=== PATIENT | female | born 1955 | race African-American/Black ===

== ENCOUNTER 2017-08-29 11:36 | Outpatient (CLI) | payer OTHER | END 2017-08-29 11:37 | disposition home or self-care (01) | LOC: BICRAD 11:36 | PROVIDERS: ATTEND Internal Medicine | DX: M25.561 Pain in right knee (principal); M25.512 Pain in left shoulder; M17.11 Unilateral primary osteoarthritis, right knee; M19.012 Primary osteoarthritis, left shoulder ==

== ENCOUNTER 2020-01-03 06:19 | Inpatient (IN) | payer MEDICARE, MEDICAID ==
[2020-01-03] MEDS ORDERED: Morphine 4 MG/ML VIAL ONE (07:14)
[2020-01-03] MEDS ORDERED: Acetaminophen 500 MG TAB ONE (07:15)
[2020-01-03] MEDS ORDERED: Ondansetron PF 4 MG/2 ML Vial ONE (07:15)
[2020-01-03 07:42] LABS: Hemoglobin 12.5 g/dL (12.0-16.0); Mean Corpuscular HGB CONC 34.6 g/dL (32.0-36.0); Mean Corpuscular Hemoglobin 29.3 pg (27.0-31.0); Mean Corpuscular Volume 84.7 fL (78.0-98.0); Mean Platelet Volume 7.7 fL (7.4-10.4); Platelet Count 295 thou/uL (130-400); Red Blood Cell (RBC) Count 4.28 mill/uL (4.20-5.40); White Blood Cell (WBC) Count 11.8 thou/uL (4.8-10.8)
[2020-01-03 07:50] LABS: INR-International Normal Ratio 0.9; PTT 27.2 SEC (22.9-36.1)
[2020-01-03 07:52] LABS: ALT (SGPT) 122 U/L (8-55); AST (SGOT) 148 U/L (5-34); Albumin 4.2 g/dL (3.4-4.8); Alkaline Phosphatase 227 U/L (40-110); Anion Gap 16 mmol/L (10-20); BUN (Urea Nitrogen) 8 mg/dL (9.8-20.1); Bilirubin, Total 2.7 mg/dL (0.2-1.2); CK (CPK) 53 U/L (29-168); Calc. Creatinine Clearance 0 mL/min (70-130); Calcium 9.8 mg/dL (7.8-10.44); Carbon Dioxide 23 mmol/L (23-31); Chloride 103 mmol/L (98-107); Estimated GFR-MDRD 87; Globulin 4.2 g/dL (2.4-3.5); Glucose 148 mg/dL (80-115); Potassium 3.5 mmol/L (3.5-5.1); Protein, Total 8.4 g/dL (6.0-8.3); Sodium 138 mmol/L (136-145)
--- NOTE | 2020-01-03 08:01 | ULT ---
Sonogram right upper quadrant HISTORY: Right upper quadrant pain. FINDINGS: Gallbladder is distended up to 10.1 cm. No stones visible. No gallbladder wall thickening. A very small amount of fluid lies immediately anterior to the gallbladder wall. Patient was reportedly not tender over the gallbladder fossa at the time of the exam. Common duct is dilated at 1 .7 cm without internal echogenicity evident. Liver has normal appearance. No free fluid. IMPRESSION : Distention of the common bile duct and gallbladder may reflect central biliary obstruction. Cause is not evident. Minimal pericholecystic fluid. For further evaluation, CT abdomen would likely be most appropriate to evaluate for potential cause o f central biliary obstruction.
[2020-01-03 08:04] LABS: Lipase 4816 U/L (8-78)
[2020-01-03 08:08] LABS: Band 29 % (5-11); Lymphocytes 2 % (21-51); MDiff Complete? YES; Monocytes 3 % (0-10); Neutrophil 66 % (42-75); RBC Morphology Normal
[2020-01-03 08:46] LABS: Bilirubin Negative (Negative); Blood, Urine Negative (Negative); Glucose, Urine (Dipstick) Negative (Negative); Leukocyte Negative (Negative); Nitrite Negative (Negative); Protein, Urine (Dipstick) Negative (Neg-Trace)
[2020-01-03 08:48] LABS: Clarity Clear (Clear)
[2020-01-03] MEDS ORDERED: Ketorolac Tromethamine 30 MG/ML VIAL ONE (08:50)
[2020-01-03] MEDS ORDERED: Vancomycin 1 GM/200 ML BAG ONE (08:50)
[2020-01-03] MEDS ORDERED: Piperacillin/Tazobactam 4.5 GM VIAL ONE (08:50)
[2020-01-03 10:32] LABS: Lactic Acid 1.7 mmol/L (0.5-2.2)
--- NOTE | 2020-01-03 10:51 | CT ---
CT ABDOMEN AND PELVIS WITH IV CONTRAST: Date: 01/03/2020 INDICATION: Right upper quadrant pain. Pancreatitis. Fever. Correlation made to gallbladder ultrasound performed today, which showed biliary duct dilatation and pericholecystic edema. FINDINGS: Lung bases clear of infiltrate with mild bibasilar stranding and atelectasis. There is intra and extrahepatic biliary duct dilatation consistent with ultrasound findings. The gall bladder is distended and there is pericholecystic edema. There is a 1.5 cm cyst in peripheral right lobe of liver and there is a small 0.7 cm cyst in the mid left lobe. Spleen unremarkable. Pancreas unremarkable with no evidence of peripancreatic edema or inflammation by CT. Common bile frances t is dilated to the pancreatic head and obstructive process near the ampulla cannot be excluded. A st one is not identified by CT. Cholesterol stones, however, may not be apparent on CT and recommend GI consultation and consider ERCP. Adrenal glands are normal. Kidneys unremarkable. Small 1.5 cm cyst superior right renal cortex. Small bowel loops normal caliber. Appendix normal. Colon unremarkable. Diverticulosis of the left col on and sigmoid. Aorta normal caliber with atherosclerotic calcification. Urinary bladder distended and unremarkable. There is evidence of hysterectomy. Osseous structures unremarkable. IMPRESSION: 1. Gallbladder is distended with pericholecystic edema. There is intra and extrahepatic biliary duct dilatation as described above. Common bile duct is dilated to the ampulla. Recommend GI consultation and consider ERCP. POS: AGW
[2020-01-03] MEDS ORDERED: Ondansetron PF 4 MG/2 ML Vial IVP PRN (11:47)
[2020-01-03] MEDS ORDERED: Morphine 2 MG/ML SYRINGE SLOW IVP PRN (11:49)
--- NOTE | 2020-01-03 12:40 | HP ---
CHIEF COMPLAINT: Epigastric pain. HISTORY OF PRESENT ILLNESS: The patient is a pleasant 64-year-old female with no significant past medical history, who presented to the hospital with complaints of epigastric and right upper quadrant abdominal pain associated with nausea and vomiting that has been progressively worsening over the past 3 days. In the ER , the patient's laboratory studies showed elevated bilirubin of 2.7 and elevated lipase of greater than 4000. Abdominal ultrasound was performed showing distention of the common bile duct and gallbladder, which may reflect central biliary obstruction. The cause was not evident on the ultrasound. Subsequent CT scan of the abdomen and pelvis was performed showing distended gallbladder with pericholecystic edema with intra and extrahepatic biliary dilatation and common bile duct dilated to the ampulla. REVIEW OF SYSTEMS: Negative, except as noted in HPI. PAST MEDICAL HISTORY: No significant past medical history. PAST SURGICAL HISTORY: Tubal ligations. SOCIAL HISTORY: The patient denies alcohol or illicit drug use. ALLERGIES: NO KNOWN ALLERGIES. PHYSICAL EXAMINATION: GENERAL: The patient is alert and oriented. HEENT: Head is normocephalic and atraumatic. Sclerae anicteric. NECK: Supple. CHEST: Clear to auscultation bilaterally. CARDIOVASCULAR: Revealed normal S1 and S2. Regular rate and rhythm. No murmurs, rubs, or gallops. ABDOMEN: Soft, tender in the epigastric area. Nondistended. Bowel sounds are audible. NEUROLOGIC: Nonfocal. ASSESSMENT: 1. Biliary obstruction. 2. Epigastric pain. 3. Pancreatitis likely due to obstruction of pancreatic duct. PLAN: We will admit the patient to the medical floor. Clear liquid diet. Start normal saline at 150 mL/h. GI and surgical team consulted. The likely plan will be for ERCP, followed by cholecystectomy, and PT and OT evaluation if needed postoperatively. Lovenox for DVT prophylaxis, which can be started after 12 hours from the procedures. Slight leukocytosis was present with bandemia, so I will initiate IV ceftriaxone. Job ID: [id number] [facility]
[2020-01-03] MEDS ORDERED: Iopamidol 370 76% 100 ML VIAL ONE (12:42)
--- NOTE | 2020-01-03 12:54 | CON ---
DATE OF CONSULTATION: 01/03/2020 REQUESTING PHYSICIAN: Dr. Pleitez. HISTORY OF PRESENT ILLNESS: This is a 64-year-old woman, who presented to the emergency department today with recurrent epigastric right upper quadrant abdominal pain, which started two days ago after eating hot wings. The pain is described as sharp, occasionally crampy and radiating to her back. Pain is associated with multiple episodes of nausea overnight. The patient denies any fevers or chills. She has experienced similar pain in the past after eating, which resolved spontaneously and not quite as severe as the pain that brought her to the emergency department at this time. At the time of my evaluation, the patient is awake and alert. She reports the pain now down to 5/10 from 10/10 upon presentation. The patient denies any unexplained weight loss. She denies any change in her bowel habits except for abdominal distention and frequent flatulence over the last 2 days. PAST MEDICAL HISTORY: The patient denies any previous medical problems. PAST SURGICAL HISTORY: She has had bilateral tubal ligation in 1972 as well as some gynecological procedure few years afterwards, she does not recall the specifics. SOCIAL HISTORY: She denies any cigarette smoking or illicit drug abuse. She drinks wine occasionally in moderate amounts. FAMILY HISTORY: Noncontributory for this patient's age. PREHOSPITALIZATION MEDICATIONS: None. ALLERGIES: THE PATIENT DENIES ANY KNOWN DRUG ALLERGIES. REVIEW OF SYSTEMS: Ten-point review of systems is essentially unremarkable except as stated in past medical history and chief complaint. PHYSICAL EXAMINATION: GENERAL: This reveals a 64-year-old normally developed woman, who is otherwise coherent, interactive, appears stated age. The patient is alert and oriented x3. She appears to be in no acute distress at the time of my evaluation. HEENT: Reveals normocephalic and atraumatic. Pupils are equal, round, reactive to light and accommodation. She has no scleral icterus present. HEART: Reveals regular rate and rhythm. No murmurs or gallops auscultated. LUNGS: Clear to auscultation bilaterally. Breathing, regular and nonlabored. ABDOMEN: Soft, moderately distended with moderate tenderness to palpation in the right upper quadrant. She has a negative Jacobs sign. Liver and spleen otherwise nonpalpable below costal margins. EXTREMITIES: Reveal 2+ radial and pedal pulses bilaterally. No ankle edema is present. NEUROLOGIC: Reveals no focal deficits present. LABORATORY FINDINGS: Today include a CBC with 11,800 white blood cells, hemoglobin and hematocrit of 12.5 and 36.2 respectively. Platelet count is 295,000. Differential counts as follows; 66 segmented neutrophils, 29 bands, 2 lymphocytes, and 3 monocytes. Metabolic profile; sodium 138, potassium 3.5, chloride is 103, bicarb is 23, BUN 8, creatinine 0.80, glucose 148. Lactic acid was initially 3.1 and on repeat was 1.7 after fluid resuscitation. Total bilirubin is 2.7, AST and ALT 148 and 122 respectively. Alkaline phosphatase is elevated at 227. Serum lipase is also elevated at 4816. I have personally reviewed the abdominal ultrasound, which is remarkable for distended gallbladder with small pericholecystic fluid. No gallstones noted. The common bile duct is dilated at almost [address] scan of the abdomen and pelvis was also obtained which reveals distended gallbladder devoid of stones and the common bile ductal dilatation was also confirmed. The pancreas is normal in echotexture with no evidence of pancreatic edema or neoplastic process. IMPRESSION: 1. Acute abdominal pain secondary to likely acute gallstone pancreatitis with possible choledocholithiasis. 2. Acute acalculous cholecystitis. RECOMMENDATIONS: 1. Fluid resuscitation. 2. Evaluation by Gastroenterology for possible ERCP following which the patient will undergo a laparoscopic cholecystectomy. 3. Above findings and recommendations have been discussed with the patient in the presence of her nurse. 4. The patient indicates understanding of the information I provided today. 5. I have answered her questions. Thank you again, Dr. Pleitez, for allowing me the opportunity to participate in the care of this patient. Job ID: [id number]
[2020-01-03] MEDS: Sodium Chloride 0.9% 1,000 ML IV SCH ×2 (13:05→21:17)
[2020-01-03] MEDS: cefTRIAXone\\ROCEPHIN 2 GM in Sodium Chloride 0.9% 100 ML IVPB SCH (13:05)
--- NOTE | 2020-01-03 13:09 | CON ---
DATE OF CONSULTATION: 01/03/2020 REQUESTING PHYSICIAN: Dr. Gonzalez. REASON FOR CONSULTATION: Pancreatitis and biliary obstruction. HISTORY OF PRESENT ILLNESS: Angela Leonard is a very pleasant 64-year-old woman with a history of hypertension, depression, chronic left shoulder pain, and hysterectomy. She has no prior significant gastrointestinal history. She says a couple of years ago, she was having some abdominal pain, was briefly hospitalized and told she had gallstones, but no procedures or surgeries were performed. She reports onset of severe pain in the epigastrium and right upper quadrant starting yesterday afternoon. This started to involve the back as well along with nausea. She had multiple episodes of emesis last night and this morning spiked fevers, which prompted her presentation. Upon arrival, her temperature was 103.1, but she was otherwise hemodynamically stable. Laboratory studies showed some elevation of LFTs with total bilirubin up to 2.7, lipase elevated to 4816, and ultrasound and CT imaging demonstrating biliary dilation with common bile duct up to 1.7 cm and a distended, thickened gallbladder. There were no stones demonstrated on the imaging, and pancreas appeared normal on CT. She has a mild leukocytosis to 11.8. She has received vancomycin and Zosyn, and ceftriaxone has been ordered for the floor. She is being admitted n.p.o. status. Currently, pain is well controlled after having received some morphine. She has no other complaints. REVIEW OF SYSTEMS: Full review of systems including constitutional, head, eyes, ears, nose, throat, GI, , cardiovascular, respiratory, musculoskeletal, neurologic systems is negative except as noted in the HPI. PAST MEDICAL HISTORY: Hypertension, hysterectomy, depression and anxiety, and chronic left shoulder pain. ALLERGIES: PENICILLIN. OUTPATIENT MEDICATIONS: Tramadol p.r.n. SOCIAL HISTORY: She will have a glass of wine in the morning. No smoking. No drug use. FAMILY HISTORY: She is unable to give any detailed information about family history, specifically with regard to liver or biliary disease. PHYSICAL EXAMINATION: VITAL SIGNS: Temperature initially 103.1, now down to 99.5; pulse 91; blood pressure 149/49; 96% oxygen saturation on room air. GENERAL: A 64-year-old woman, sitting up in bed comfortably, in no distress. SKIN: No jaundice, no rashes that were palpable. EYES: No scleral icterus. Extraocular movements intact. ENT: Mucous membranes moist. No oral lesions. LYMPH: No submandibular or supraclavicular lymphadenopathy. THYROID: Nontender to palpation. HEART: Regular rate and rhythm. LUNGS: Clear to auscultation bilaterally. ABDOMEN: Nondistended. Bowel sounds are hypoactive, but present, soft, tender to palpation in the epigastrium and right upper quadrant, but no guarding or rebound tenderness. EXTREMITIES: No peripheral edema. VESSELS: Radial pulses 2+ bilaterally. NEURO: Cranial nerves 2 through 12 intact bilaterally. No focal deficits. LABORATORY STUDIES: WBC 11.8, hemoglobin 12.5, and platelets 295. Sodium 138, potassium 3.5, BUN 8, creatinine 0.80, INR 0.9. Lipase 4816, total bilirubin 2.7, alkaline phosphatase 227, AST 148, ALT 122, albumin 4.2. Urinalysis negative. Lactic acid initially 3.1, now down to 1.7. Blood cultures and urine cultures are pending. IMAGING STUDIES: Chest x-ray shows no acute processes. Abdominal ultrasound shows gallbladder distention and thickening with a small amount of pericholecystic fluid. No gallstones visualized, but common bile duct measuring 1.[address] of the abdomen and pelvis also demonstrates intra and extrahepatic biliary dilation to the level of the pancreatic head. There is left-sided diverticulosis. Pancreas appears normal. ASSESSMENT AND PLAN: 1. Biliary pancreatitis. 2. Biliary obstruction, suspect secondary to choledocholithiasis, with common bile duct dilated down to the level of the pancreatic head. I discussed the case with Dr. Fan as well as with the patient. Her presentation seems most consistent with choledocholithiasis causing biliary pancreatitis, even though no definitive stone is seen on the imaging. She is going to need endoscopic retrograde cholangiopancreatography. We are going to plan for the procedure tomorrow. In the meantime, I agree with supportive care, IV fluids, n.p.o. status, as well as antibiotics. The patient is quite stable at this time. If she is having any hemodynamic instability along with fever spikes later today, could always perform endoscopic retrograde cholangiopancreatography more urgently, but I do not anticipate we will need to do that. Please call anytime with questions or concerns. We will plan for the endoscopic retrograde cholangiopancreatography tomorrow morning. Dr. Fan was already on board for consideration of cholecystectomy following endoscopic retrograde cholangiopancreatography. I discussed procedure in detail with the patient including the risks of post endoscopic retrograde cholangiopancreatography pancreatitis, and she desires to proceed. Thank you for the consultation. Again, please call anytime with questions or concerns. Job ID: [id number]
[2020-01-03 13:15] VITALS: BMI 32.8
--- NOTE | 2020-01-03 23:01 | PRG ---
DATE OF SERVICE: 01/03/2020 SUBJECTIVE: The patient was seen this evening during rounds. She was lying in bed comfortably, asleep, but no signs of acute distress. Nursing reported no acute events. OBJECTIVE: VITAL SIGNS: Temperature 98.5, pulse 89, respirations 18, oxygen saturation 98% on 2 L nasal cannula, blood pressure 121/75. GENERAL: Well-appearing elderly female, lying in bed, asleep, but no signs of acute distress. PULMONARY: Equal chest rise and fall. No signs of acute respiratory distress. ASSESSMENT: 1. Acute abdominal pain secondary to likely acute gallstone pancreatitis with associated possible choledocholithiasis. 2. Acute acalculous cholecystitis. PLAN: Continue n.p.o. Continue current fluid resuscitation and IV antibiotics. The patient is pending ERCP with lap renate tomorrow. Job ID: [id number]
[2020-01-04] MEDS: Sodium Chloride 0.9% 1,000 ML IV SCH ×4 (04:46→21:21)
[2020-01-04 06:41] LABS: #Monocytes 0.6 thou/uL (0.11-0.59); #Neutrophils 9.7 thou/uL (1.40-6.50); %Basophils 0.1 % (0.0-1.0); %Eosinophils 0.3 % (0.0-10.0); %Monocytes 5.5 % (0.0-10.0); %Neutrophils 85.1 % (42.0-75.0); Mean Corpuscular HGB CONC 33.5 g/dL (32.0-36.0); Mean Corpuscular Hemoglobin 29.2 pg (27.0-31.0); Mean Corpuscular Volume 87.4 fL (78.0-98.0); Mean Platelet Volume 7.9 fL (7.4-10.4); Platelet Count 252 thou/uL (130-400); RBC Distribution Width 13.3 % (11.5-14.5); Red Blood Cell (RBC) Count 3.76 mill/uL (4.20-5.40); White Blood Cell (WBC) Count 11.3 thou/uL (4.8-10.8)
--- NOTE | 2020-01-04 07:03 | RAD ---
Chest one view HISTORY: Chest and abdomen pain. FINDINGS: Cardiac silhouette is magnified and upper limits of normal in size. Shallow inspiration acc entuates pulmonary markings. Mediastinum is midline. No lobar consolidation or evidence of pneumothorax. fire range technician leads ove rlie the chest. IMPRESSION : No active cardiopulmonary abnormalities are demonstrated.
[2020-01-04 07:04] LABS: ALT (SGPT) 89 U/L (8-55); AST (SGOT) 76 U/L (5-34); Albumin 3.3 g/dL (3.4-4.8); Alkaline Phosphatase 176 U/L (40-110); Anion Gap 12 mmol/L (10-20); BUN (Urea Nitrogen) 6 mg/dL (9.8-20.1); Bilirubin, Total 5.9 mg/dL (0.2-1.2); Calc. Creatinine Clearance 106 mL/min (70-130); Carbon Dioxide 20 mmol/L (23-31); Chloride 111 mmol/L (98-107); Estimated GFR-MDRD Greater than 90; Globulin 3.5 g/dL (2.4-3.5); Glucose 101 mg/dL (80-115); Lipase 134 U/L (8-78); Potassium 3.4 mmol/L (3.5-5.1); Protein, Total 6.8 g/dL (6.0-8.3); Sodium 140 mmol/L (136-145)
[2020-01-04] MEDS ORDERED: Indomethacin 50 MG SUPP ONE (07:04)
[2020-01-04] MEDS ORDERED: Iothalamate Meglumine 60% 50 ML VIAL FS ONE (08:14)
[2020-01-04] MEDS ORDERED: Potassium Phosphate 30 MMOL in Sodium Chloride 0.9% 500 ML IVPB SCH (08:15)
[2020-01-04] MEDS ORDERED: Fentanyl 100 MCG/2 ML VIAL ONE (08:32)
[2020-01-04] MEDS ORDERED: Famotidine/PF 20 mg/2ml Vial ONE (08:32)
[2020-01-04] MEDS ORDERED: SUGAMMADEX SODIUM 500 MG/5 ML VIAL ONE (08:32)
[2020-01-04] MEDS ORDERED: Lidocaine 1% w/Epinephrine 1:100K 20 ML VIAL ONE (08:39)
[2020-01-04] MEDS ORDERED: Bupivacaine 0.25% HCL 30 ML VIAL ONE (08:39)
--- NOTE | 2020-01-04 09:41 | RAD ---
ERCP: 01/04/2020 HISTORY: Pancreatitis, fever, right upper quadrant pain FINDINGS: A single view from an ERCP is provided. There is contrast media within the common bile duct , which appears dilated. The distal CBD is not well opacified. There is tapering of the distal common bile duct which may be related to mass lesion, stricture, and/or incomplete distention. Correl ation with real-time imaging is required. IMPRESSION: Limited ERCP as detailed above.
--- NOTE | 2020-01-04 10:08 | OP ---
DATE OF PROCEDURE: 01/04/2020 SALES PROJECT ADMINISTRATOR SURGEON: None. PROCEDURE PERFORMED: Endoscopic retrograde cholangiopancreatography with biliary sphincterotomy and sludge extraction with balloon. INDICATIONS: 1. Biliary pancreatitis. 2. Possible choledocholithiasis, based on imaging demonstrating dilated bile duct as well as elevated LFTs. MEDICATIONS: See Anesthesia record. FINDINGS: After discussion of the risks, benefits, and alternatives of the procedure, informed consent was obtained and witnessed. Pre-endoscopic cardiopulmonary examination was satisfactory. Time-out was performed before sedation was achieved. Sedation was achieved with the patient under general anesthesia in the endoscopy unit. She was placed in a semiprone position on the fluoroscopy table. A Pentax adult side-viewing duodenoscope was advanced into the mouth beyond the esophagus and into the stomach. There was some patchy nonerosive gastritis, visualized in the gastric fundus. No ulcerations visualized on indirect views of the stomach. The endoscope was passed through the pylorus and into the second portion of the duodenum. The ampulla was brought into view with the endoscope in the short position. The ampulla appeared normal. There did appear to be free flow of bile from the ampulla. Using a triple-lumen DomeTip sphincterotome and a 0.035 guidewire, we selectively cannulated the common bile duct. The wire was passed up into the left intrahepatic system. Biliary cholangiogram was performed. This did demonstrate some [id number] dilation of the common bile duct, but no clear filling defects were seen. There was suggestion of ill-defined hazy opacity within the distal common bile duct, but no stones visualized. Contrast was seen going through the cystic duct and into the gallbladder, though the cystic duct did seem small in caliber and the gallbladder did not fill well. At this point, a generous biliary sphincterotomy was performed. We then exchanged the sphincterotome for a 12 to 15 mm balloon. Multiple passes were made of the common bile duct with the balloon fully inflated to 15 mm. There was a small amount of sludge that was extracted from the common bile duct, no large stones. Occlusion cholangiogram demonstrated no filling defects following balloon sweep. One final balloon sweep was made to sweep out excess contrast from the common bile duct. The working apparatus was then completely withdrawn. The endoscope was completely withdrawn, suctioning out excess air and fluid and the procedure was completed. Postprocedure fluoroscopic images demonstrated no retroperitoneal or subdiaphragmatic free air. The patient tolerated the procedure well. There were no immediate postprocedure complications. She was taken directly to the operating room for planned cholecystectomy. IMPRESSION: 1. [id number] dilation of the common bile duct, with no clear filling defect or stricture seen. 2. Successful endoscopic retrograde cholangiopancreatography with biliary sphincterotomy and balloon extraction of a small amount of sludge from the common bile duct. RECOMMENDATIONS: 1. Proceed to cholecystectomy. 2. Trend LFTs tomorrow. Job ID: [id number]
[2020-01-04] MEDS ORDERED: PROPOFOL 200 MG/20 ML VIAL ONE (11:46)
[2020-01-04] MEDS ORDERED: Metoclopramide HCl 10 MG/2 ML VIAL ONE (11:46)
[2020-01-04] MEDS ORDERED: Lidocaine 1% PF 5 ML VIAL ONE (11:46)
[2020-01-04] MEDS ORDERED: Rocuronium Bromide 10 MG/ML (10ML VIAL) ONE ×2 (11:46→11:47)
[2020-01-04] MEDS ORDERED: Dexamethasone 20 MG/5 ML VIAL ONE ×2 (11:46→11:47)
[2020-01-04] MEDS ORDERED: Succinylcholine Chloride 20 MG/ML 10 ml SYRINGE FS ONE (11:46)
[2020-01-04] MEDS ORDERED: PHENYLEPHRINE-NS 100 MCG/ML 10 ML SYRINGE ONE (11:46)
[2020-01-04] MEDS ORDERED: HYDROcodone/Acetaminophen 5/325 mg Tablet PO PRN (11:47)
[2020-01-04] MEDS ORDERED: Ketorolac Tromethamine 30 MG/ML VIAL ONE (11:47)
[2020-01-04] MEDS ORDERED: Ondansetron ODT 4 MG TAB PO PRN (11:47)
[2020-01-04] MEDS ORDERED: Ondansetron PF 4 MG/2 ML Vial ONE (11:47)
[2020-01-04] MEDS ORDERED: traMADol HCl 50 MG TAB PO PRN ×2 (11:47)
[2020-01-04] MEDS ORDERED: Acetaminophen 325 MG TAB PO PRN ×2 (11:48)
[2020-01-04] MEDS ORDERED: Ibuprofen 200 MG TAB PO PRN ×2 (11:49)
[2020-01-04] MEDS: Enoxaparin Sodium 40 MG/0.4 ML SYRINGE SC SCH (12:23)
[2020-01-04] MEDS: cefTRIAXone\\ROCEPHIN 2 GM in Sodium Chloride 0.9% 100 ML IVPB SCH (12:50)
--- NOTE | 2020-01-04 13:07 | EKG ---
Test Reason : Blood Pressure : / mmHG Vent. Rate : 096 BPM Atrial Rate : 096 BPM P-R Int : 144 ms QRS Dur : 082 ms QT Int : 360 ms P-R-T Axes : 077 041 033 degrees QTc Int : 454 ms Normal sinus rhythm Possible Left atrial enlargement Nonspecific T wave abnormality Abnormal ECG Confirmed by JC PRADO DO ([id number]), loan expeditor SUNSHINE ROLLE ([id number] on 01/04/2020 1:06:30 PM Referred By: Confirmed By:JC PRADO DO
--- NOTE | 2020-01-04 13:56 | PDOC.HOSPP ---
- Subjective Encounter Date: 01/04/20 Subjective: S/P ERCP. The patient is resting well and does not appear to be in pain. - Objective Vital Signs & Weight: Vital Signs (12 hours) Temp Pulse Resp BP Pulse Ox 01/04/20 12:00 98.4 F 97 20 138/55 L 95 01/04/20 04:00 98.6 F 92 18 124/64 94 L Weight Weight 185 lb I&O: 01/03/20 01/04/20 01/05/20 06:59 06:59 06:59 Intake Total 1380 Output Total 800 Balance 580 Result Diagrams: 01/04/20 05:45 01/04/20 05:45 Hospitalist ROS - Medication Medications: Active Medications Generic Name Dose Route Start Last Admin Trade Name Freq PRN Reason Stop Dose Admin Enoxaparin Sodium 40 mg 01/04/20 09:00 01/04/20 12:23 Lovenox SC Not Given 0900 AINSLEY Sodium Chloride 1,000 mls @ 150 mls/hr 01/03/20 12:00 01/04/20 12:22 Normal Saline 0.9% IV Not Given .[id number] AINSLEY Ceftriaxone Sodium 2 gm/ 100 mls @ 200 mls/hr 01/03/20 13:00 01/04/20 12:50 Sodium Chloride IVPB 100 mls 1300 AINSLEY Administration Potassium Phosphate 30 mmol/ 510 mls @ 83.3 mls/hr 01/04/20 08:15 01/04/20 12 :23 Sodium Chloride IVPB 01/04/20 15:00 Not Given NOW AINSLEY - Exam ENT: normocephalic atraumatic Neck: supple, no JVD Respiratory: normal chest expansion, no tachypnea Gastrointestinal: soft, non-tender, non-distended, normal bowel sounds Hosp A/P (1) Biliary obstruction Status: Acute (2) Pancreatitis Code(s): K85.90 - ACUTE PANCREATITIS WITHOUT NECROSIS OR INFECTION, UNSP Status: Acute - Plan S/P ERCP with sphincterotomy and removal of biliary sludge. No stones or filling defects. Lipase level improved. Pt is cleared for Cholecystectomy. Continue IVF.
[2020-01-05] MEDS: Sodium Chloride 0.9% 1,000 ML IV SCH ×4 (04:44→11:01)
[2020-01-05] MEDS: HYDROcodone/Acetaminophen 5/325 mg Tablet PO PRN ×2 (05:00→09:17)
[2020-01-05 06:03] LABS: #Lymphocytes 1.1 thou/uL (1.20-3.40); #Monocytes 0.5 thou/uL (0.11-0.59); #Neutrophils 8.2 thou/uL (1.40-6.50); %Basophils 0.3 % (0.0-1.0); %Eosinophils 0.1 % (0.0-10.0); %Lymphocytes 11.5 % (21.0-51.0); %Monocytes 5.3 % (0.0-10.0); %Neutrophils 82.9 % (42.0-75.0); Hemoglobin 10.9 g/dL (12.0-16.0); Mean Corpuscular Hemoglobin 28.4 pg (27.0-31.0); Mean Corpuscular Volume 86.2 fL (78.0-98.0); Mean Platelet Volume 8.2 fL (7.4-10.4); Platelet Count 301 thou/uL (130-400); RBC Distribution Width 13.3 % (11.5-14.5); Red Blood Cell (RBC) Count 3.83 mill/uL (4.20-5.40); White Blood Cell (WBC) Count 9.9 thou/uL (4.8-10.8)
[2020-01-05 06:26] LABS: ALT (SGPT) 94 U/L (8-55); AST (SGOT) 89 U/L (5-34); Albumin 3.3 g/dL (3.4-4.8); Alkaline Phosphatase 204 U/L (40-110); Anion Gap 14 mmol/L (10-20); BUN (Urea Nitrogen) 8 mg/dL (9.8-20.1); Bilirubin, Total 3.2 mg/dL (0.2-1.2); Calc. Creatinine Clearance 98 mL/min (70-130); Calcium 9.5 mg/dL (7.8-10.44); Carbon Dioxide 22 mmol/L (23-31); Chloride 111 mmol/L (98-107); Estimated GFR-MDRD Greater than 90; Globulin 3.7 g/dL (2.4-3.5); Glucose 124 mg/dL (80-115); Potassium 3.6 mmol/L (3.5-5.1); Sodium 143 mmol/L (136-145)
[2020-01-05] MEDS: Enoxaparin Sodium 40 MG/0.4 ML SYRINGE SC SCH (09:17)
--- NOTE | 2020-01-05 09:28 | PDOC.OP ---
Operative Note - Operative Note Operative Note: DATE OF PROCEDURE: PROCEDURES: Laparoscopic cholecystectomy. SURGEON: Mili Adam M.D. PREOPERATIVE DIAGNOSIS: Gallstone pancreatitis POSTOPERATIVE DIAGNOSIS: Gallstone pancreatitis, chronic cholecystitis FINDINGS: Chronically distended gallbladder with extensive chronic omental adhesions HISTORY: Patient with acute pancreatitis and dilated bile duct, presumed due to choledocholithiasis. Laparoscopic cholecystectomy was recommended for prevention of future episodes. ERCP performed immediately prior showed sludge in bile duct but no obstructing stones. PROCEDURE: After informed consent was obtained and appropriate preoperative antibiotics were administered, the patient was taken to the operating room and placed in the supine position and general endotracheal anesthesia was administered. The stomach was decompressed with an OG tube and the abdomen was prepped and draped in standard sterile fashion. Local anesthesia was infused to the skin and subcutaneous tissues at the umbilical level. A transverse skin incision was made. The fascia was elevated and a Veress needle was placed into the abdominal cavity without difficulty. Opening pressure was less than 5 and carbon dioxide gas easily insufflated to an intra-abdominal pressure of 15, which the patient tolerated well. The Veress needle was withdrawn and a [place] port advanced under direct vision. The abdominal cavity was carefully examined. There was no evidence of Veress needle or of trocar injury. The patient had extensive omental adhesions to the lower midline, and some omental adhesions to the right anterior abdominal wall, but none in the vicinity of the trochar. Local anesthesia was infused to the skin and subcutaneous tissues at the epigastric abdominal site and a trocar was placed under direct vision of the laparoscope. The omemtal adhesions to the anterior upper abdominal wall were taken down through the avascular plane to allow adequate visualization of the gallbladder but the dense lower midline incisions were left in place. Local anesthesia was injected in the right upper and right lateral positions and trocars placed under direct vision. The gall bladder was identified but was completely covered by omental adhesions. A plane was developed at the fundus and the upper portion of the gallbladder exposed. The fundus of the gallbladder was grasped and retracted superiorly. The remainder of the omental adhesions were stripped inferiorly off the gallbladder exposing it completely. The infundibulum was grasped and retracted laterally. The serosa was stripped inferiorly at the level of the neck of the gallbladder exposing the cystic duct and artery which were traced clearly to their insertion in the gallbladder. Critical view of safety was obtained and the cystic duct and artery were clipped and divided between clips. The gallbladder was then dissected free of the gallbladder bed using hook electrocautery. Prior to complete removal of the gallbladder from the gallbladder bed, the area of the cystic duct and artery stumps was examined. The clips were in good position completely across these structures and there was no bleeding and no leakage of bile. The gallbladder was then placed into an EndoCatch bag and drawn out through the epigastric incision. The epigastric trocar was replaced and the operative site easily irrigated to clear. There was no significant bleeding or spillage of bile. The epigastric trocar was removed and the fascia closed under direct laparoscopic vision with a 0 Vicryl suture on a GraNee needle in a figure-of- eight manner with excellent technical result. The right upper quadrant and right lateral abdominal trocars were removed and hemostasis verified. Carbon dioxide gas was allowed to desufflate through the umbilical trocar which was then removed. The skin incisions were closed with 4-0 subcuticular Monocryl sutures and Dermabond dressings were placed. The patient was extubated and taken to the recovery room in good condition. There were no complications. ESTIMATED BLOOD LOSS: Minimal. SPECIMEN : Gallbladder and contents.
--- NOTE | 2020-01-05 09:39 | PDOC.HOSPP ---
- Subjective Encounter Date: 01/05/20 Encounter Time: 09:38 Subjective: F/u: abd pain Patient is s/p cholecystectomy. She has no abd pain, nausea, vomiting. Tolerated a diet today. Per micro, blood cultures still pending, results not available until tomorrow - Objective Vital Signs & Weight: Vital Signs (12 hours) Temp Pulse Resp BP Pulse Ox 01/05/20 08:05 96 01/05/20 07:00 98.3 F 75 16 159/73 H 99 01/05/20 03:30 99 F 81 16 158/70 H 95 01/05/20 00:02 98.1 F 80 16 156/76 H 99 Weight Weight 185 lb I&O: 01/04/20 01/05/20 01/06/20 06:59 06:59 06:59 Intake Total 1380 3836 Output Total 800 Balance 580 3836 Result Diagrams: 01/05/20 05:15 01/05/20 05:15 Hospitalist ROS - Review of Systems Constitutional: denies: fever, chills - Medication Medications: Active Medications Generic Name Dose Route Start Last Admin Trade Name Freq PRN Reason Stop Dose Admin Hydrocodone Bitart/Acetaminophen 1 tab 01/04/20 11:46 01/05/20 09:17 [place] 5/325 PO 1 tab Q4H PRN Administration Moderate Pain (4-6) Enoxaparin Sodium 40 mg 01/04/20 09:00 01/05/20 09:17 Lovenox SC 40 mg 0900 AINSLEY Administration Sodium Chloride 1,000 mls @ 150 mls/hr 01/03/20 12:00 01/05/20 05:00 Normal Saline 0.9% IV 1,000 mls .Q6H40M AINSLEY Administration Ceftriaxone Sodium 2 gm/ 100 mls @ 200 mls/hr 01/03/20 13:00 01/04/20 12:50 Sodium Chloride IVPB 100 mls 1300 AINSLEY Administration - Exam General Appearance: NAD, awake alert Eye: PERRL, anicteric sclera ENT: normocephalic atraumatic, no oropharyngeal lesions Neck: no JVD Heart: RRR, no murmur, no gallops, no rubs Respiratory: CTAB, no wheezes, no rales, no ronchi Gastrointestinal: soft Gastrointestinal - other findings: epigastric and RUQ tenderness Extremities: no cyanosis, no clubbing, no edema Skin: normal turgor, no lesions, no rashes Hosp A/P - Plan Chest X ray: negative This is 64 year old female who presented with gallstone pancreatitis , s/p ERCP and cholecystectomy #Biliary pancreatitis s/p ERCP with biliary sphincterotomy and balloon extraction and cholecystectomy #Gram negative jose bacteremia #Transaminitis - LFT trending up slightly. Tolerating soft diet per nursing - will await final speciation of blood cultures. Currently on IV ceftriaxone. Per lab, it is possibly Klebsiella Anemia - stable, will monitor. Hb 8 Leukocytosis - resolved Dispo: possibly d/c in the am
--- NOTE | 2020-01-05 10:01 | PDOC.GSPN ---
Surgery Progress Note: Subj - Subjective Narrative: Feels good. RUQ pain gone, minimal incisional tenderness controlled by PO meds. Tolerating low fat diet. Bilirubin trending down, incisions look good. Blood cultures positive for campo-sensitive GNR, final ID pending. A/P) Doing well s/p ERCP and lap renate. Fine for discharge from surgical standpoint. Agree w oral abx at discharge due to positive blood cultures, but source, gallbladder, is gone. Lab states final ID/sensitivities should be back tonight, and I can follow up on this and contact pt if change in abx needed. Recheck bili as outpatient to ensure normalization, follow up in surgery clinic or by phone in 2 weeks. Surgery Progress Note: Obj - Vital signs Vital signs: Vital Signs - Most Recent Temp Pulse Resp BP Pulse Ox 98.3 F 75 16 159/73 H 96 01/05/20 07:00 01/05/20 07:00 01/05/20 07:00 01/05/20 07:00 01/05/20 08:05 Surgery Progress Note: Results - Labs Result Diagrams: 01/05/20 05:15 01/05/20 05:15 Lab results: Laboratory Results - last 24 hr 01/05/20 01/05/20 05:15 05:15 WBC 9.9 RBC 3.83 L Hgb 10.9 L Hct 33.0 L MCV 86.2 MCH 28.4 MCHC 33.0 RDW 13.3 Plt Count 301 MPV 8.2 Neutrophils % 82.9 H Lymphocytes % 11.5 L Monocytes % 5.3 Eosinophils % 0.1 Basophils % 0.3 Neutrophils # 8.2 H Lymphocytes # 1.1 L Monocytes # 0.5 Eosinophils # 0.0 Basophils # 0.0 Sodium 143 Potassium 3.6 Chloride 111 H Carbon Dioxide 22 L Anion Gap 14 BUN 8 L Creatinine 0.75 Estimated GFR (MDRD) Greater than 90 Glucose 124 H Calcium 9.5 Total Bilirubin 3.2 H AST 89 H ALT 94 H Alkaline Phosphatase 204 H Serum Total Protein 7.0 Albumin 3.3 L Globulin 3.7 H Albumin/Globulin Ratio 0.9 L
[2020-01-05] MEDS: cefTRIAXone\\ROCEPHIN 2 GM in Sodium Chloride 0.9% 100 ML IVPB SCH (11:01)
[2020-01-05 12:05] VITALS: BP 154/73; TEMP 98.1
--- NOTE | 2020-01-05 18:01 | DIS ---
DATE OF ADMISSION: 01/03/2020 DATE OF DISCHARGE: 01/05/2020 DISCHARGE DIAGNOSES: 1. Biliary pancreatitis. 2. Gram-negative jose bacteremia. 3. Transaminitis. 4. Anemia. 5. Leukocytosis. CONSULTATIONS: Farhat Jean with GI, Mili Adam with General Surgery. PROCEDURES: Endoscopic retrograde cholangiopancreatography with biliary sphincterotomy and balloon extraction, cholecystectomy. BRIEF HISTORY OF PRESENT ILLNESS: This is a 64-year-old female with no significant past medical history, who presented to the emergency room with right upper quadrant and epigastric pain, nausea, vomiting, and elevated bilirubin. She had an abdominal ultrasound done that showed distention of her common bile duct and gallbladder. CT scan of her abdomen and pelvis showed distended gallbladder with pericholecystic edema. The patient was admitted for further workup. HOSPITAL COURSE: Biliary pancreatitis/gram-negative jose bacteremia/transaminitis: The patient had 2/2 blood cultures growing gram-negative rods. The patient was treated with IV ceftriaxone and responded well. Blood cultures grew 2/2 Klebsiella. She underwent an ERCP with biliary sphincterotomy and balloon extraction on 01/03 and had a cholecystectomy the same night. The following day, the patient's diet was advanced and she was tolerating a regular diet on the day of discharge. She was discharged on ciprofloxacin for 14 days. She should follow up with Dr. Adam in 2 weeks for repeat LFTs. Anemia: The patient's hemoglobin of 8. This can be followed up on discharge. Leukocytosis: The patient presented with a white count of 11.8, which came down to 9.9 on the day of discharge. DISCHARGE PHYSICAL EXAMINATION: VITAL SIGNS: Temperature 98.1, heart rate 88, respiratory rate 16, O2 saturation 94% on room air, blood pressure 154/73. GENERAL: The patient is alert, awake, oriented x3. CVS: Regular rate and rhythm with no murmurs, rubs, or gallops. LUNGS: Clear to auscultation bilaterally. ABDOMEN: Positive bowel sounds. The patient has mild right upper quadrant tenderness and epigastric tenderness near her surgical site. EXTREMITIES: No edema. PERTINENT LABORATORY DATA: CBC 01/04: Shows hemoglobin 10.9, hematocrit 33.0. CMP 01/04: Unremarkable except for AST of 89, ALT of 94, alkaline phosphatase of 204. UA 01/02: Unremarkable. IMAGING STUDIES: CT abdomen and pelvis 01/02: Gallbladder is distended with pericholecystic edema. There is intra and extrahepatic biliary duct dilation. Common bile duct is dilated to the ampulla. Abdominal ultrasound 01/02: Distention of the common bile duct and gallbladder may reflect central biliary obstruction. Cause is not evident. Minimal pericholecystic fluid. Chest x-ray 01/02: No active cardiopulmonary abnormalities. ERCP 01/03: Distal CBD is not well opacified. There is tapering in the distal common bile duct which may relate to mass lesion, stricture and/or incomplete distention. DISCHARGE CONDITION: Stable. ACTIVITY: As tolerated. DIET: Low-fat diet. DISCHARGE MEDICATIONS: New prescriptions: Cipro 500 mg p.o. q.12 hours for 14 days. DISCHARGE INSTRUCTIONS: The patient should follow up with her PCP in a week. She should avoid lifting more than 20 pounds for 2 weeks. She should follow up with Dr. Adam in 2 weeks for repeat LFTs. Final followup of blood cultures and sensitivities will be done tomorrow. Job ID: [id number] [facility]
--- NOTE | 2020-01-06 09:34 | PDOC.GSPN ---
Surgery Progress Note: Subj - Subjective Narrative: Lab review shows klebsiella on blood cx still sensitive to Cipro. Surgery Progress Note: Obj - Vital signs Vital signs: Vital Signs - Most Recent Temp Pulse Resp BP Pulse Ox 98.1 F 88 16 154/73 H 94 L 01/05/20 11:15 01/05/20 11:15 01/05/20 11:15 01/05/20 11:15 01/05/20 11:15 Surgery Progress Note: Results - Labs Result Diagrams: 01/05/20 05:15 01/05/20 05:15
--- NOTE | 2020-01-08 00:10 | PQF ---
XIOMARA DANIELS UMA [id number] [facility] A- 3301 [id number] CLINICAL DOCUMENTATION CLARIFICATION FORM: POST DISCHARGE Addendum to original discharge summary date: ____ Late entry note date: __ DATE: 01/08/20 ATTN: Suzette Hastings Please exercise your independent, professional judgment in responding to the clarification form. Clinical indicators are provided on the bottom of this form for your review Can you please further clarify the diagnosis of the patient? Please check appropriate box(es): [X ] Sepsis due to Infectious biliary pancreatitis [ ] Sepsis due to non- infectious biliary pancreatitis [ ] Bacteremia only without sepsis [ ] Other diagnosis please specify [ ] Unable to determine In addition, please specify: Present on Admission (POA): [ ] Yes [ ] No [ ] Unable to determine For continuity of documentation, please document condition throughout progress notes and discharge summary. Thank You. CLINICAL INDICATORS - SIGNS / SYMPTOMS / LABS H and P pg.1- Epigastric pain Consult pg.2- Biliary pancreatitis Hospitalist PN 01/04 pg.3- Gram negative jose bacteremia Hospitalist PN 01/04 pg.3- leukocytosis, resolved General PN pg.1- Blood culture positive for campo-sensitive GNR RISK FACTORS Acute gallstone pancreatitis- PN 01/02 pg.1 Acute acalculous cholecystitis Gram negative bacteremia- DS pg.1 64 years old- H and P pg.1 TREATMENTS: Abdomen/Pelvis CT 01/02 Abdomen Ultrasound 01/[address] Jean 01/02 ERCP- 01/03 OP Report pg.1 Laparoscopic Cholecystectomy 01/04- OP report pg.1 Cefazolin Sodium 2gm- IV MAR Zosyn 4.5gm IV- MAR 01/02 Vancomycin 1gm IV- MAR 01/02 IV Fluids- MAR Blood culture- Microbiology (This form is maintained as a part of the permanent medical record) 2014 [employer]. All Rights Reserved [email or web address]
== END 2020-01-05 11:30 | disposition home or self-care (01) | DRG 853 ==
LOC: ERS 06:19 → SURG A 11:06
PROVIDERS: ADMIT Internal Medicine; ATTEND Internal Medicine
PROC: 0F798ZZ Dilation of Common Bile Duct, Via Natural or Artificial Opening Endoscopic (ICD-10-PCS; 2020-01-04)
PROC: 0FC98ZZ Extirpation of Matter from Common Bile Duct, Via Natural or Artificial Opening Endoscopic (ICD-10-PCS; 2020-01-04)
PROC: BF131ZZ Fluoroscopy of Gallbladder and Bile Ducts using Low Osmolar Contrast (ICD-10-PCS; 2020-01-04)
PROC: 0FT44ZZ Resection of Gallbladder, Percutaneous Endoscopic Approach (ICD-10-PCS; principal; 2020-01-05)
DX: A41.9 Sepsis, unspecified organism (principal); K85.10 Biliary acute pancreatitis without necrosis or infection; K81.1 Chronic cholecystitis; I10 Essential (primary) hypertension; F32.9 Major depressive disorder, single episode, unspecified; M25.512 Pain in left shoulder; G89.4 Chronic pain syndrome; F41.9 Anxiety disorder, unspecified; D72.829 Elevated white blood cell count, unspecified; B96.1 Klebsiella pneumoniae [K. pneumoniae] as the cause of diseases classified elsewhere; Z90.710 Acquired absence of both cervix and uterus; Z98.51 Tubal ligation status; Z88.0 Allergy status to penicillin; D64.9 Anemia, unspecified
CPT/HCPCS: 36415; 71045; 74177; 74330; 76705; 80053; 81003; 82550; 83605; 83690; 83735; 84100; 85025; 85610; 85730; 87040; 87077; 87086; 87149; 87186; 88304; 93005; 96361; 96365; 96375; J0690; J0696; J1100; J1610; J1650; J1885; J2001; J2270; J2405; J2543; J2704; J2765; J3010; J3370; J3490; Q9967; S0020; S0028

== ENCOUNTER 2020-01-26 11:17 | Emergency (ER) | payer MEDICARE, OTHER ==
[~2020-01-26 11:17] MED LIST: Iopamidol-370 76% 500 ML 1 ML ONE
[2020-01-26] MEDS ORDERED: Fentanyl 100 MCG/2 ML VIAL ONE (12:04)
[2020-01-26] MEDS ORDERED: Ondansetron PF 4 MG/2 ML Vial ONE (12:24)
[2020-01-26 12:33] LABS: #Lymphocytes 1.8 thou/uL (1.20-3.40); #Monocytes 0.3 thou/uL (0.11-0.59); #Neutrophils 2.5 thou/uL (1.40-6.50); %Basophils 0.2 % (0.0-1.0); %Lymphocytes 38.8 % (21.0-51.0); Hemoglobin 12.2 g/dL (12.0-16.0); Mean Corpuscular HGB CONC 33.7 g/dL (32.0-36.0); Mean Corpuscular Hemoglobin 28.3 pg (27.0-31.0); Mean Corpuscular Volume 83.8 fL (78.0-98.0); Mean Platelet Volume 7.4 fL (7.4-10.4); Platelet Count 278 thou/uL (130-400); RBC Distribution Width 13.5 % (11.5-14.5); White Blood Cell (WBC) Count 4.6 thou/uL (4.8-10.8)
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
[2020-01-26 12:56] LABS: ALT (SGPT) 17 U/L (8-55); AST (SGOT) 20 U/L (5-34); Alkaline Phosphatase 83 U/L (40-110); Anion Gap 12 mmol/L (10-20); BUN (Urea Nitrogen) 7 mg/dL (9.8-20.1); Bilirubin, Total 0.9 mg/dL (0.2-1.2); Calc. Creatinine Clearance 0 mL/min (70-130); Calcium 9.6 mg/dL (7.8-10.44); Carbon Dioxide 25 mmol/L (23-31); Chloride 109 mmol/L (98-107); Estimated GFR-MDRD Greater than 90; Globulin 3.1 g/dL (2.4-3.5); Glucose 99 mg/dL (80-115); Lipase 6 U/L (8-78); Potassium 3.9 mmol/L (3.5-5.1); Protein, Total 7.1 g/dL (6.0-8.3); Sodium 142 mmol/L (136-145)
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
[2020-01-26 13:09] LABS: Bilirubin Negative (Negative); Blood, Urine Negative (Negative); Clarity Clear (Clear); Glucose, Urine (Dipstick) Normal (Negative); Leukocyte Negative Leu/uL (Negative); Nitrite Negative (Negative); Protein, Urine (Dipstick) Negative (Neg-Trace); Urobilinogen Normal mg/dL (Less than 2)
[2020-01-26] MEDS ORDERED: Ketorolac Tromethamine 30 MG/ML VIAL ONE (14:06)
--- NOTE | 2020-02-07 16:56 | EKG ---
Test Reason : Blood Pressure : / mmHG Vent. Rate : 076 BPM Atrial Rate : 076 BPM P-R Int : 158 ms QRS Dur : 084 ms QT Int : 410 ms P-R-T Axes : 066 014 003 degrees QTc Int : 461 ms Normal sinus rhythm Possible Left atrial enlargement Borderline ECG Confirmed by EVERTON JACINTO M.D. ([id number]), publishing editor SUNSHINE ROLLE ([id number]) on 02/07/2020 4:56:44 PM Referred By: Confirmed By:EVERTON JACINTO M.D.
== END 2020-01-26 15:00 | disposition home or self-care (01) ==
LOC: ERS 11:17
DX: S10.93XA Contusion of unspecified part of neck, initial encounter (principal); I10 Essential (primary) hypertension; D64.9 Anemia, unspecified; F41.9 Anxiety disorder, unspecified; Z79.899 Other long term (current) drug therapy; V89.2XXA Person injured in unspecified motor-vehicle accident, traffic, initial encounter
CPT/HCPCS: 36415; 51701; 70450; 71260; 72125; 74177; 80053; 81003; 83690; 85025; 93005; 96374; 96375; A4353; J1885; J2405; J3010; L0120; Q9967